=== PATIENT | female | born 1955 | race Caucasian/White ===

== ENCOUNTER → 2023-10-19 | Outpatient (CLI) | payer MEDICARE, OTHER, SELFPAY ==
--- NOTE | 2023-10-19 10:36 | BI_ITS ---
MAMMOGRAPHY - BILATERAL SCREENING REASON FOR EXAM: Female, 68 years old. Routine annual screening examination. PERTINENT HISTORY: Personal history of breast cancer. Prior right lumpectomy and axillary node dissection with radiation. TECHNIQUE: Digital bilateral breast chavo (3D mammographic acquisition) in the CC and MLO projections. 2-D mediolateral oblique (MLO) and craniocaudad (CC) views of both breasts were obtained. CAD: Full Field Digital Mammography with Computer Added Detection was performed. COMPARISON: Comparison is made with prior examination of August 18, 2021 FINDINGS: Breast Composition: There are scattered areas of fibroglandular density. There are no dominant masses or suspicious calcifications. The patient is status post lumpectomy in the deep upper lateral aspect of the right breast with resultant postoperative scarring and skin thickening. Surgical clips are also seen in the right axilla. No other significant abnormalities are identified. There has been no significant change since the prior study. BI/SCRN MAMM (CAD)W/CHAVO BILAT IMPRESSION: Stable bilateral screening mammogram. Yearly follow-up mammogram recommended. (A) ASSESSMENT CATEGORY: BIRADS Category 2: Benign. A letter regarding these results will be sent to the patient by the facility within 30 days. Approximately 10% of breast cancers are not detected by mammography. A normal mammogram should not delay biopsy of a clinically suspicious abnormality. [id number] Electronically Signed: Rico Godoy MD at 15:18 EST ,
--- OUTSIDE RECORDS SUMMARY | 2023-10-19 10:58 | XMS RPT_ITS | CCD ---
Author Name Unknown Address [address] [facility] [address] [place] [address] Organization [facility] Care Team Providers Care Mh Teacher Name Role Phone Swathi Moscoso) Primary Care Provider 1( [phone] Problems Problem Classification Problem Date Documented Da te Episodic/Chronic Menopausal disorders (1 source) Menopausal syndrome; Translations: [Climacteric] Onset: 08-15-2010 08-15-2010 Chronic Mood disorders (1 source) Depressive disorder; Translations: [Depression] Onset: 08-15-2010 08-15-2010 Chronic Results Test Name Value Interpretation Reference Range Facil ity Encounters Encounter Date Encounter Type Care Provider Facility Start: 08-09-2016 End: 08-09-2016 Patient encounter procedure Swathi Moscoso (Hist) Work Phone: [facility] Start: 08-09-2016 Results Only Swathi Moscoso (Hist) Work Phone: [facility] Procedures Date Procedure Procedure Detail Performing Clinician Start: 08-24-2016 Mammography Swathi cai Start: 08-09-2016 CONVERTED CYTOLOGY GEOSPATIAL SCIENTIST Swathi Moscoso (Hist) Work Phone: Plan of Treatment Date Care Activity Detail Author Start: 08-24-2021 LIPID SCREEN LIPID SCREEN [facility] Start: 08-09-2021 PAP TESTING PAP TESTING [facility] Start: 05-04-2020 Influenza vaccination INFLUENZA (#1) [facility] Start: 08-24-2019 DIABETES SCREEN DIABETES SCREEN [facility] Start: 08-24-2017 Mammography MAMMOGRAM [facility] Start: 08-15-2015 HPV TESTING HPV TESTING [facility] Start: 2006 SHINGRIX VACCINE (1 of 2) [place] GRIX VACCINE (1 of 2) [facility] Start: 2006 Tuberculosis screening COLOREC YISSEL CANCER SCREENING,SEE MODIFIER [facility] Start: 1975 Urine microalbumin profile DTAP,TDAP ,TD (1 - Tdap) [facility] Start: 1974 HEPATITIS C SCREENING HEPATITIS C SC VIRGIL [facility] Start: 1974 HIV SCREENING HIV SCREENING [facility] Payers Date Payer Category Payer Unknown MMO MMO TRADITIO NAL [id number] 2011-Present Indemnity [id number] Social History Date Type Detail Facility Start: 08-09-2016 Tobacco smoking stat us NVIS Never smoker [facility] Start: 08-09-2016 Tobacco use and exposure Never used [facility] Start: 08-09-2016 Alcohol intake Current drinke r of alcohol (finding) [facility] Start: 08-09-2016 Alcohol [facility] Sex Assigned At Not on file [facility] Summary Purpose Family History No Family History Records Found Advance Directives No Advanced Directives Records Found Additional Source Comments Source Comments (unrecognize d section and content) In the event this informatio n is protected by the Federal Confidentiality of Alcohol and Drug Abuse Patient Records regulations: The Federal rules restrict any use of the information to criminally investigate or prosecute any alcohol or drug abuse patient.[facility] INFORMATION SOURCE (unrecogn ized section and content) FOR RECORDS PERTAINING TO PATIENTS WHO ARE OR HAVE BEEN ENROLLED IN A CHEMICAL DEPENDENCY/SUBSTANCEABUSE PROGRAM, SOME INFORMATION MAY BE OMITTED. This clinical summary was aggregated from multiple sources. Caution should be exercised in using it in the provision of clinical care. This summary normalizes information from multiple sources, and as a consequence, information in this document may materially change the coding, format and clinical context of patient data. In addition, data may be omitted in some cases. CLINICAL DECISIONS SHOULD BE BASED ON THE PRIMARY CLINICAL RECORDS. [facility] [facility]. provides no warranty or guarantee of the accuracy or completeness of information in this document.
== END | disposition home or self-care (01) ==
PROVIDERS: PCP Family Medicine; Referring Provider Family Medicine; Visit Provider Family Medicine
DX: Z12.31 Encounter for screening mammogram for malignant neoplasm of breast (principal)
CPT/HCPCS: 77063; 77067

== ENCOUNTER 2024-03-01 02:29 | Emergency (ER) | payer MEDICARE, OTHER, SELFPAY ==
[2024-03-01 02:34] VITALS: BP 196/94; PULSE 99; RESP 18; TEMP 36.8; O2SAT 100; BMI 25.0
--- NOTE | 2024-03-01 02:49 | RAD_ITS ---
INDICATION: chest pain EXAMINATION/TECHNIQUE: X-RAY - XR Chest 2 Views COMPARISON: None. FINDINGS: LINES/DEVICES: None. LUNGS: No consolidation or evidence of an effusion. No evidence of edema or a pneumothorax. MEDIASTINUM AND CARDIOVASCULAR STRUCTURES: Cardiac silhouette is normal in size and contour. Mediastinum is unremarkable. BONES AND SOFT TISSUES: No acute abnormality. RAD/Chest PA and Lateral IMPRESSION: No evidence of acute cardiopulmonary disease. Electronically Signed: Akash Gongora DO at 3:48 EDT ,
--- NOTE | 2024-03-01 02:49 | EKG12_ITS ---
Test Reason : BACK PAIN Blood Pressure : / mmHG Vent. Rate : 090 BPM Atrial Rate : 090 BPM P-R Int : 180 ms QRS Dur : 086 ms QT Int : 366 ms P-R-T Axes : 033 016 049 degrees QTc Int : 447 ms Normal sinus rhythm Normal ECG Confirmed by Jay Benavides ([id number]), marketing editor MARYJO ROMERO ([id number]) on 03/03/2024 8:17:22 AM Referred By: Confirmed By:Jay Benavides
--- NOTE | 2024-03-01 02:51 | EX.ED.DYSGE1 ---
HPI History of Present Illness Chief Complaint: Back Informant: patient Narrative Narrative: Patient is a 68-year-old female with past medical history of hypertension and depression. She states around 10 PM this evening she noticed some pain in the left mid upper back. She states that there is been no excessive activity or trauma. She denies any radiation of the pain. She states that there is no associated nausea vomiting diaphoresis or shortness of breath. She denies any vision changes or sensation of weakness or headache. She states that she cannot go to sleep as she kept thinking this potentially could be cardiac in nature and therefore comes in for evaluation. Patient also denies any recent travel surgery hormone use or history of DVT/PE. [facility] Medical History Abnormal echocardiogram Dyspnea on exertion Essential (primary) hypertension Depression Home Medications ?Medication ?Instructions ?Recorded ?Last Taken ?Type bupropion HCl 300 mg 24 hr tablet, 300 mg PO QAM 01/14/24 Unknown History extended release (Wellbutrin XL) escitalopram oxalate 10 mg tablet 10 mg PO DAILY 01/14/24 Unknown History (Lexapro) letrozole 2.5 mg tablet 2.5 mg PO DAILY 01/14/24 Unknown History lisinopril 30 mg tablet 30 mg PO DAILY 01/14/24 Unknown History Allergy/AdvReac Type Severity Reaction Status Date / Time No Known Allergies Allergy Unverified 01/14/24 14:59 Surgical History (Updated 01/14/24 @ 15:08 by Delma Wilson RN) No history of previous surgery Social History Smoking Status: Never smoker [facility] ED Constitutional Constitutional ED: Denies chills or fever(s) Eyes Eyes: Denies change in vision ENT ENT ED: Denies sore throat Cardiovascular Cardiovascular: Denies chest pain, palpitations or racing heartbeat Respiratory/Chest Respiratory/Chest: Denies cough or dyspnea Gastrointestinal Gastrointestinal: Denies abdominal pain, diarrhea, nausea or vomiting Genitourinary Genitourinary ED: Denies dysuria or hematuria Musculoskeletal Musculoskeletal: Reports back pain Integumentary Denies rash Neurologic Neurologic: Denies headache(s), paresthesias or weakness Hematologic/Lymphatic Hematologic/Lymphatic: Denies easy bleeding or easy bruising EXAM Physical Exam Const Vital Signs: 03/01/24 02:34 03/01/24 02:37 Temperature 98.2 F Temperature Source Oral Pulse Rate 99 Respiratory Rate 18 Respiratory Effort Normal Non-Labored Blood Pressure 196/94 H Blood Pressure Mean 128 Pulse Ox 100 Oxygen Delivery Method Room Air Positive well nourished and well developed General Appearance ED: well developed; Negative for pallor HEENT HEENT Narrative: Normocephalic atraumatic Eyes PERRL and EOMs intact bilaterally General Eye ED: Negative for pale conjunctiva or scleral icterus Neck supple Neck Narrative: No nuchal rigidity or meningeal signs Resp normal respiratory effort and clear to auscultation bilaterally Resp Narrative: No nasal flaring retractions tachypnea or accessory muscle use Cardio regular rate and regular rhythm Rate: other Other Details: Heart is regular rate and rhythm without murmurs rubs or gallops Radial and carotid pulses are equal and symmetric GI normal to inspection, nondistended, normoactive bowel sounds, non-tender, non-distended and no masses GI Narrative: Negative Lea sign No pulsatile mass or fluid wave Auscultation: normoactive bowel sounds Palpation: soft Back/Spine Back/Spine Narrative: No bony deformity or step-off of the thoracic or lumbar spine no midline tenderness to palpation There is left upper parathoracic tension and mild tenderness noted along the scapular border. No overlying erythema or warmth to suggest infection and no abrasions or ecchymosis to suggest trauma. Extremity normal to inspection Extremity Narrative: No asymmetric edema no pitting edema negative Homans' sign bilaterally Neuro oriented x3, CN's II-XII intact bilaterally and no sensory deficits noted Sensorium / Orientation: alert Motor Exam: strength 5/5 throughout Psych mental status grossly normal Skin no rashes or lesions noted and no wounds General Skin Exam: Negative for jaundice or pallor MDM MDM MDM Narrative Medical decision making narrative: Patient arrived to the ER hypertensive but has a past medical history of this. She reported vague pain in the left upper back without report of trauma or excessive activity. Differential diagnosis is for atypical acute coronary syndrome versus cardiac dysrhythmia versus pneumonia versus pneumothorax versus pulmonary embolus versus atypical biliary colic versus muscular strain/spasm. Secondary to his basic blood work was obtained. Patient's troponin is 4 this coupled with a normal EKG and atypical presentation goes against acute coronary syndrome. Chest x-ray revealed no widening of the mediastinum to suggest dissection or lung pathology such as pneumonia or pneumothorax. The patient's D-dimer was also normal for her age going against pulmonary embolus or dissection. Therefore at this time with patient's workup being negative this is most likely musculoskeletal in nature and she can treat this symptomatically at home and is otherwise safe for discharge History & Record Review Discussion w/independent historian: Patient Lab Data Attestation: I reviewed the patient's lab results. Labs: Laboratory Results - last 24 hr 03/01/24 03:00 WBC 4.3 L RBC 3.81 L Hgb 12.2 Hct 37.0 MCV 97.1 MCH 32.0 MCHC 33.0 RDW Std Deviation 46.0 H RDW Coeff of Kadeem 12.9 Plt Count 242 MPV 8.7 Immature Gran % (Auto) 0.500 Neut % (Auto) 54.2 Lymph % (Auto) 32.3 [place] % (Auto) 10.2 H Eos % (Auto) 2.1 Baso % (Auto) 0.7 Absolute Neuts (auto) 2.3 Absolute Lymphs (auto) 1.39 Nucleated RBC % 0 D-Dimer Quant (PE/DVT) 0.50 H Sodium 141 Potassium 3.3 L Chloride 108 H Carbon Dioxide 24.0 Anion Gap 9 BUN 10 Creatinine 0.83 Estim Creat Clear Calc 59.18 Est GFR (MDRD) Af Amer 88 Est GFR (MDRD) Non-Af 73 BUN/Creatinine Ratio 12.0 Glucose 100 Calcium 9.2 Total Bilirubin 0.40 Direct Bilirubin 0.16 AST 19 ALT 35 Alkaline Phosphatase 93 Troponin I High Sens 4 Total Protein 7.0 Albumin 3.7 Globulin 3.3 Radiography Diagnostic Testing: Clinical Impression(s) from Imaging Studies Chest X-Ray 03/01/24 02:49 IMPRESSION: No evidence of acute cardiopulmonary disease. Electronically Signed: Akash Gongora DO at 3:48 EDT , 2 view chest x-ray as interpreted by the emergency medicine physician reveals no acute infiltrate pneumothorax pleural effusion or widening the mediastinum Discharge Plan Triage Chief Complaint: Back ED Provider: Noe Sánchez Dx/Rx/DC Orders Clinical Impression: Back pain, Essential (primary) hypertension Instructions: Relieving Back Pain, ED Hypertension, Established Prescriptions: No Action lisinopril 30 mg tablet 30 mg PO DAILY letrozole 2.5 mg tablet 2.5 mg PO DAILY escitalopram oxalate [Lexapro] 10 mg tablet 10 mg PO DAILY bupropion HCl [Wellbutrin XL] 300 mg tablet extended release 24 hr 300 mg PO QAM Primary Care Provider: Snoy Fischer Referrals: Sony Fischer MD [Primary Care Provider] - Activity Restrictions/Additional Instructions: Your workup showed no signs of cardiac event or lung pathology indicating this is most likely musculoskeletal in nature. Continue your home meds as directed by your family doctor and return to the ER should you have any further concerns Print Language: Croatian Disposition Disposition: Home, Self Care
[2024-03-01 03:10] LABS: Absolute Lymphocyte Count 1.39 X10^3/uL (0.83-4.51); Absolute Neutrophil Count 2.3 X10^3/uL (2.0-7.7); Basophil# 0.03 X10^3/uL; Basophil% 0.7 % (0-1); Eosinophil# 0.09 X10^3/uL; Eosinophils% 2.1 % (0-5); Hemoglobin 12.2 g/dL (12.0-15.0); Lymphocyte # 1.39 X10^3/ul (0.83-4.51); Lymphocyte % 32.3 % (19-41); Mean Corpuscular Volume 97.1 fL (81-99); Mean Platelet Vol. 8.7 fl (6.2-12.0); Monocyte# 0.44 X10^3/uL; Monocyte% 10.2 % (0-10); NRBC Flagged by Analyzer 0 % (0-5); Neutrophil # 2.34 X10^3/uL (2.7-7.7); Neutrophil % 54.2 % (47-70); Platelet Count 242 K/mm3 (150-450); RBC Distribution Width CV 12.9 % (11.6-14.6); Red Blood Count 3.81 M/mm3 (4.2-5.4); White Blood Count 4.3 K/mm3 (4.4-11.0)
[2024-03-01] MEDS: Ketorolac 30 MG/ML Syringe IV (03:11)
--- NOTE | 2024-03-01 03:14 | ED.RN ---
REFUSING NORFLEX AT THIS TIME DUE TO NEEDING TO DRIVE HOME.
[2024-03-01 03:29] LABS: AST(SGOT) 19 U/L (15-37); Alanine Aminotransfer ALT/SGPT 35 U/L (13-56); Albumin, Serum 3.7 g/dL (3.2-5.0); Alkaline Phosphatase 93 U/L (45-117); Anion Gap 9 (5-15); BUN 10 mg/dL (7-18); Bilirubin, Direct 0.16 mg/dL (0.00-0.30); Calcium,Total 9.2 mg/dL (8.5-10.1); Chloride 108 mmol/L (98-107); Creatinine, Serum 0.83 mg/dL (0.55-1.02); EST Glomerular Filtration Rate 73 mL/min (>60); Est Glom Filt Rate - Afr Amer 88 mL/min (>60); Estimated Creatinine Clearance 59.18 ml/min; Globulin 3.3 g/dL (2.2-4.2); Glucose 100 mg/dL (74-106); Potassium 3.3 mmol/L (3.5-5.1); Sodium Level 141 mmol/L (136-145); Troponin-I HS 4 pg/mL (3.0-54.0)
[2024-03-01 04:10] VITALS: BP 163/83; PULSE 84; RESP 18; TEMP 36.5; O2SAT 96
== END 2024-03-01 04:15 | disposition home or self-care (01) ==
PROVIDERS: Emergency Provider Emergency Medicine; PCP Family Medicine; Visit Provider Emergency Medicine
DX: M54.9 Dorsalgia, unspecified (principal); I10 Essential (primary) hypertension
CPT/HCPCS: 71046; 80048; 80076; 84484; 85025; 85379; 93005; 96374; 96376; 99283; A4216

== ENCOUNTER → 2024-11-06 | Outpatient (CLI) | payer MEDICARE, OTHER, SELFPAY ==
--- NOTE | 2024-11-06 11:00 | BI_ITS ---
PROCEDURE: SCREENING MAMM (CAD), BILAT REASON FOR EXAM: F, Age 69 y/o, personal history of breast cancer. Prior right lumpectomy and axillary node dissection. Annual mammographic follow-up. TECHNIQUE: Bilateral screening digital breast tomosynthesis with 2D and 3D images. Computer aided detection. COMPARISON: Prior exam(s) dating back to October 19, 2023.. FINDINGS: There are scattered areas of fibroglandular density. Once again, the patient is status post lumpectomy in the deep upper axillary region of the right breast with a postoperative dystrophic calcification and scarring. Surgical clips are also seen in the right axilla. There has been no change. No suspicious masses, areas of developing architectural distortion, or suspicious calcifications. Stable examination. BI/SCREENING MAMM (CAD), BILAT IMPRESSION: BI-RADS 2: BENIGN. RECOMMEND ANNUAL MAMMOGRAPHIC SCREENING. Follow-up code: Routine Follow-up The patient will be notified of the results by letter. Reading Location: [facility]
== END | disposition home or self-care (01) ==
LOC: OPBI 10:58
PROVIDERS: PCP Family Medicine; Referring Provider Family Medicine; Visit Provider Family Medicine
DX: Z12.31 Encounter for screening mammogram for malignant neoplasm of breast (principal)
CPT/HCPCS: 77067